=== PATIENT | male | born 1970 | race Caucasian/White ===

== ENCOUNTER 2018-05-07 06:35 | Day surgery (SDC) | payer BC ==
[~2018-05-07 06:35] MED LIST: ACETAMINOPHEN 1,000 MG/100 ML BTL IV ONE; CEFAZOLIN 2 Gram 2 GM/50 ML BAG IVPB ONE
[2018-05-07] MEDS ORDERED: MORPHINE SULFATE PF 10MG/10ML VIAL IV ONE (06:36)
[2018-05-07] MEDS ORDERED: HYDROMORPHONE HCL 2 MG/ML VIAL IV ONE (06:36)
[2018-05-07] MEDS ORDERED: SEVOFLURANE 250 ML INH ONE (06:36)
[2018-05-07] MEDS ORDERED: ONDANSETRON HCL IV 4 MG/2 ML VIAL IVP ONE (06:36)
[2018-05-07] MEDS ORDERED: KETOROLAC 30 MG/ML VIAL IVP ONE (06:36)
[2018-05-07] MEDS ORDERED: DEXAMETHASONE 4 MG/ML 1ML VIAL IVP ONE (06:36)
[2018-05-07] MEDS ORDERED: ROCURONIUM BROMIDE 50MG/5ML VIAL IV ONE (06:36)
[2018-05-07] MEDS ORDERED: BUPIVACAINE 0.5% (5MG/ML) PF 30ML VIAL IVP ONE (06:36)
[2018-05-07] MEDS ORDERED: LIDOCAINE 2% MDV (20MG/ML) 20ML VIAL IV ONE (06:36)
[2018-05-07] MEDS ORDERED: MIDAZOLAM HCL 2MG/2ML VIAL IV ONE (06:36)
[2018-05-07] MEDS ORDERED: BUPIVACAINE LIPOSOME/PF 133MG/10ML VIAL IV ONE (06:36)
[2018-05-07] MEDS ORDERED: FENTANYL PF 100MCG/2ML VIAL IV ONE (06:36)
[2018-05-07] MEDS ORDERED: PROPOFOL 10 MG/ML VIAL IV ONE (06:36)
[2018-05-07] MEDS ORDERED: METHYLPREDNISOLONE 40MG/VIAL IM ONE (06:36)
[2018-05-07] MEDS ORDERED: SUCCINYLCHOLINE 20 MG/ML 10ML IVP ONE (06:36)
--- NOTE | 2018-05-08 08:50 | Operative Note ---
DATE OF SURGERY: 05/07/2018 PREOPERATIVE DIAGNOSIS: Tear of the rotator cuff on the right. POSTOPERATIVE DIAGNOSES: 1. Large chronic tear of the rotator cuff on the right. 2. Profound external impingement, right shoulder. 3. Diffuse synovitis, right shoulder with superior labral tear. 4. 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 OPERATION: 1. Partial repair of a large tear of the rotator cuff. 2. Right shoulder arthroscopy with intraarticular debridement. 3. Right shoulder open acromioplasty, CA ligament resection, subacromial bursectomy. 4. Right shoulder distal clavicle resection. Staff Surgeon: Rio Cancino MD Anesthesia: General. Preparation: Chloraprep. Individual Considerations: None. PROCEDURE: The patient was taken to the operating room, placed supine on the operating room table. He had a successful induction with general anesthetic. He was then placed in a semi-seated beach chair position. His right arm and shoulder were prepped and draped in the usual fashion. The patient had examination under anesthesia. It showed no instability and good motion. The patient had a posterior portal identified for arthroscopy. Skin was infiltrated with 0.5% Marcaine with epinephrine prior. An 18-gauge spinal needle was easily placed in the joint, and the joint was inflated with normal saline. A stab wound was made, and a blunt-tipped trocar for the scope was placed inside the joint. The joint was inflated with normal saline. An anterior accessory portal was made just inferior to the intact long head of the biceps tendon in a retrograde fashion with a Wissinger solis, and the joint was irrigated out. The patient had diffuse synovitis which was debrided. Glenohumeral joint was normal. Some fraying of the superior labrum was debrided. Obvious large tear of the supraspinatus extending into the infraspinatus. Subscap was normal. After irrigation, portals were closed with angelito. The patient had an anterior approach to the subacromial space and distal clavicle. Skin was infiltrated with 0.5% Marcaine with epinephrine prior. Sharp dissection carried down through skin and subcutaneous tissues. Small veins were coagulated with a Bovie. An anterior deltoid interval was developed. Care was taken not to split the deltoid more than about 4 cm distal to the anterior tip of the acromion to prevent injury to the axillary nerve. Once in the subacromial space, there was a large tierney of fluid consistent with tear. The deltoid was then taken subperiosteally off the anterior aspect of the downsloping acromion, over the top of the intact CA ligament, and off the highly degenerated anterior aspect of the distal clavicle. Distal clavicle was resected with an oscillating saw. CA ligament was resected with a Bovie. Downsloping acromion with a spur was resected taking about a centimeter tapering towards posteromedially to include the spurs at the AC joint. The undersurface was smoothed with a rasp. A very thickened bursa was debrided out and I had a good look. The subscap was intact but the rotator cuff, supraspinatus and infraspinatus, was completely torn and retracted. It looked chronic. Teres minor was intact. I was able to bring it down, and with the arm at its side I had about a centimeter gap. I abducted the arm maybe 30 degrees, brought it down to the tuberosity. I was able to restore maybe a centimeter to a centimeter and a half of the central portion of this tendon construct. I burred the area of the tuberosity, placed a couple of retention sutures and #1 Ethibond, which were good through good tendon and brought it down through the bone distally and tied it down. This secured it but in order to hold it, the arm had to be abducted about 20-30 degrees. After irrigation, deltoid was reattached to the remaining acromion with multiple interrupted #2 Vicryl going directly into the bony acromion. The periosteal cup of the distal clavicle was closed with running #2 Vicryl. Anterior deltoid interval was closed with running #1 Vicryl. Subcu was closed with 2-0 plus Vicryl. Skin was closed with angelito. Then 20 mL of 0.5% Marcaine with epinephrine along with 10 mg of morphine was injected into the subacromial space through the sterile 18-gauge needle. A sterile bulky compressive dressing and UltraSling with the arm abducted about 25-30 degrees was placed. The patient tolerated the procedure well. Needle and sponge counts were correct. Estimated blood loss was minimal. He was taken back to recovery in good condition. There were no complications. [facility]
== END 2018-05-07 11:05 | disposition home or self-care (01) ==
LOC: SUR 06:35
PROVIDERS: ATTEND Orthopaedic Surgery
DX: M75.121 Complete rotator cuff tear or rupture of right shoulder, not specified as traumatic (principal); M75.41 Impingement syndrome of right shoulder; S43.431A Superior glenoid labrum lesion of right shoulder, initial encounter; M19.011 Primary osteoarthritis, right shoulder; R25.1 Tremor, unspecified
CPT/HCPCS: 23412; 23415; 23120; 29822; 01610; 64415; J1885; J2405; J3010; J1170; J0690; C9290; 76942; J0330; J1030